=== PATIENT | male | born 1975 | race Hispanic/Latino ===

== ENCOUNTER 2020-06-18 17:59 | Emergency (ER) | payer OTHER ==
[~2020-06-18] VITALS: Ht 170.2 cm; Wt 76.4 kg
[2020-06-18] MEDS ORDERED: TRAMADOL HYDROC50 MG PO (19:42)
[2020-06-18] MEDS ORDERED: CYCLOBENZAPRINE10 MG PO (19:42)
[2020-06-18 19:54] VITALS: BP 141/85
== END 2020-06-18 19:54 | disposition home or self-care (01) ==
LOC: ED 17:59
DX: M51.86 Other intervertebral disc disorders, lumbar region (principal); F17.210 Nicotine dependence, cigarettes, uncomplicated

== ENCOUNTER 2020-06-22 10:54 | Emergency (ER) | payer OTHER ==
[~2020-06-22] VITALS: Ht 170.2 cm; Wt 75.0 kg
[~2020-06-22 10:54] MED LIST: CYCLOBENZAPRINE10 MG PO; TRAMADOL HYDROC50 MG PO
[2020-06-22] MEDS ORDERED: IBUPROFEN600 MG PO (12:17)
[2020-06-22] MEDS ORDERED: MEDDOSEPAK PO (12:17)
[2020-06-22] MEDS ORDERED: NORCO1 TA1 PO (12:17)
[2020-06-22 12:44] VITALS: BP 130/85
== END 2020-06-22 12:44 | disposition home or self-care (01) ==
LOC: ED 10:54
DX: M51.87 Other intervertebral disc disorders, lumbosacral region (principal); F17.210 Nicotine dependence, cigarettes, uncomplicated

== ENCOUNTER 2020-10-31 08:42 | Emergency (ER) | payer OTHER ==
[~2020-10-31] VITALS: Ht 170.2 cm; Wt 135.0 kg
[~2020-10-31 08:42] MED LIST changes: +IBUPROFEN600 MG PO; +MEDDOSEPAK PO; +NORCO1 TA1 PO
[2020-10-31] MEDS ORDERED: BACTRIM DS1 TAB PO (10:37)
[2020-10-31] MEDS ORDERED: KEFLEX500 MG PO (10:37)
[2020-10-31 10:53] VITALS: BP 119/69
== END 2020-10-31 10:54 | disposition home or self-care (01) ==
LOC: ED 08:42
DX: L02.212 Cutaneous abscess of back [any part, except buttock and flank] (principal); F17.200 Nicotine dependence, unspecified, uncomplicated

== ENCOUNTER 2020-11-02 07:50 | Emergency (ER) | payer OTHER ==
[~2020-11-02] VITALS: Ht 170.2 cm; Wt 73.0 kg
[~2020-11-02 07:50] MED LIST changes: +BACTRIM DS1 TAB PO; +KEFLEX500 MG PO
[2020-11-02 08:33] VITALS: BP 137/77
== END 2020-11-02 08:38 | disposition home or self-care (01) ==
LOC: ED 07:50
DX: Z48.01 Encounter for change or removal of surgical wound dressing (principal)

== ENCOUNTER 2020-11-05 18:26 | Emergency (ER) | payer OTHER ==
[~2020-11-05] VITALS: Ht 170.2 cm; Wt 77.2 kg
[2020-11-05 18:42] VITALS: BP 131/65
== END 2020-11-05 18:58 | disposition home or self-care (01) ==
LOC: ED 18:26
DX: Z48.01 Encounter for change or removal of surgical wound dressing (principal); F17.200 Nicotine dependence, unspecified, uncomplicated

== ENCOUNTER 2020-11-07 20:50 | Emergency (ER) | payer OTHER ==
[~2020-11-07] VITALS: Ht 170.2 cm; Wt 65.0 kg
[2020-11-07 22:37] VITALS: BP 128/72
== END 2020-11-07 22:37 | disposition home or self-care (01) ==
LOC: ED 20:50
DX: Z48.01 Encounter for change or removal of surgical wound dressing (principal)